=== PATIENT | female | born 2000 | race Two or more races ===

== ENCOUNTER 2023-09-30 20:32 | Emergency (ER) | payer SELFPAY ==
[2023-09-30 20:39] VITALS: BP 137/92; PULSE 78; RESP 14; TEMP 36.8; O2SAT 100
--- NOTE | 2023-09-30 21:24 | ED.GENADULT ---
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 over the last 3 weeks patient has had several small areas of itching across her entire body. No other signs of allergic reaction. One of her roommates as a similar rash. Patient denies any history of bed bugs or scabies. No other signs of allergic reaction such as wheezing nausea vomiting diarrhea lightheadedness or dizziness. Patient has been using Benadryl and hydrocortisone with some relief. Related Data Allergies Allergy/AdvReac Type Severity Reaction Status Date / Time No Known Allergies Allergy Verified 09/30/23 21:28 Exam Narrative: APPEARANCE: No apparent distress. Head: atraumatic. EYES: EOMI, NOSE: Atraumatic NECK: Trachea midline RESPIRATORY: No increased rate of breathing CARDIOVASCULAR: RRR, ABDOMINAL: Non-distended MUSCULOSKELETAl: No obvious deformities NEURO: Alert. Moving 4/4 extremities SKIN:: Several small areas of erythema at different stages of healing with a central punctate lesion PSYCHIATRIC: Normal affect Course Vital Signs Vital signs: Vital Signs Temperature 98.3 F 09/30/23 20:39 Pulse Rate 78 09/30/23 20:39 Respiratory Rate 14 09/30/23 20:39 Blood Pressure 137/92 H 09/30/23 20:39 Pulse Oximetry 100 09/30/23 20:39 Oxygen Delivery Room Air 09/30/23 20:39 Temperature 98.3 F 09/30/23 20:39 Pulse Rate 78 09/30/23 20:39 Respiratory Rate 14 09/30/23 20:39 Blood Pressure 137/92 H 09/30/23 20:39 Pulse Oximetry 100 09/30/23 20:39 Oxygen Delivery Room Air 09/30/23 20:39 Medical Decision Making [facility] Narrative Medical decision making narrative: -Course: 23-year-old female presenting with what looks like bug bites at different stages of healing. Patient be treated for scabies given information about bedbugs. Recommend her roommates get treatment as well. d/c w/ pcp f/u. -Interventions: dexamethasone 10mg po -Shared decision making / Disposition: discharge -RX permethrin cream Vital Signs Vital Signs: Vital Signs Temperature 98.3 F 09/30/23 20:39 Pulse Rate 78 09/30/23 20:39 Respiratory Rate 14 09/30/23 20:39 Blood Pressure 137/92 H 09/30/23 20:39 Pulse Oximetry 100 09/30/23 20:39 Oxygen Delivery Room Air 09/30/23 20:39 Temperature 98.3 F 09/30/23 20:39 Pulse Rate 78 09/30/23 20:39 Respiratory Rate 14 09/30/23 20:39 Blood Pressure 137/92 H 09/30/23 20:39 Pulse Oximetry 100 09/30/23 20:39 Oxygen Delivery Room Air 09/30/23 20:39 Discharge Plan Discharge Clinical Impression: Bug bite Patient Disposition: Home, Self-Care Condition: Stable Instructions: Antibiotic Form, Scabies (ED), Bed Bugs (ED) Additional Instructions: You were seen in the emergency department for an itchy rash. I think these are more likely to be from bed bugs or scabies than from an allergy. Please use the permethrin cream as directed. Please wash all of your bedding in hot water. I would recommend your roommates do the same. Please follow-up with [facility] for further management. Prescriptions: New permethrin [Elimite] 5 % cream 1 applic topical ONCE Qty: 60 0RF Rx Instructions: leave on for 8 to14 hrs before washing off permethrin 5 % cream 1 applic topical Q14D Qty: 60 0RF Rx Instructions: apply second treatment 14 days after first treatment if live lice remain Follow-up/Referrals: PHYSIC[facility] [Primary Care Provider] -
[2023-09-30] MEDS: dexAMETHasone SOD PHOS INJ 10 MG/ML 1 ML VIAL PO (21:38)
== END 2023-09-30 22:07 | disposition home or self-care (01) ==
PROVIDERS: Emergency Provider Emergency Medicine
DX: T14.8XXA Other injury of unspecified body region, initial encounter (principal)
CPT/HCPCS: 99283; J1100

== ENCOUNTER 2024-05-14 20:13 | Emergency (ER) | payer SELFPAY ==
[2024-05-14 20:20] VITALS: BP 125/78; PULSE 67; RESP 16; TEMP 36.4; O2SAT 100
== END 2024-05-15 07:40 | disposition left against medical advice (07) ==
LOC: ANHED 05-15 07:23
DX: R10.10 Upper abdominal pain, unspecified (principal)
CPT/HCPCS: 99199